=== PATIENT | male | born 1970 | race Caucasian/White ===

== ENCOUNTER 2018-12-21 10:39 | Inpatient (IN) | payer SELFPAY ==
--- NOTE | 2018-12-21 12:07 | PDOC ---
History of Present Illness <Nathalia Harris - Last Filed: 12/21/18 15:40> - General History Source: Patient Exam Limitations: No Limitations <Mayelin Aldana - Last Filed: 12/22/18 08:23> - General Chief Complaint: Pain Stated Complaint: ABD. PAIN Time Seen by Provider: 12/21/18 11:50 Past History <Nathalia Harris - Last Filed: 12/21/18 15:40> - Travel Traveled outside of the country in the last 30 days: No Close contact w/someone who was outside of country & ill: No - Past Medical History COPD: No CHF: No DVT: No - Immunization History Immunization Up to Date: Yes - Suicide/Smoking/Psychosocial Hx Smoking History: Never smoked Hx Alcohol Use: No Drug/Substance Use Hx: No <Mayelin Aldana - Last Filed: 12/22/18 08:23> - Past Medical History Allergies/Adverse Reactions: Allergies Allergy/AdvReac Type Severity Reaction Status Date / Time No Known Allergies Allergy Verified 12/21/18 10:50 Home Medications: Ambulatory Orders NK [No Known Home Medication] 12/21/18 Review of Systems - Review of Systems Able to Perform ROS?: Yes Comments:: 12/21/18 19:26 CONSTITUTIONAL: Absent: fever, chills, diaphoresis, generalized weakness, malaise, loss of appetite HEENT: Absent: rhinorrhea, nasal congestion, throat pain, throat swelling, difficulty swallowing, mouth swelling, ear pain, eye pain, visual Changes CARDIOVASCULAR: Absent: chest pain, loss of consciousness, palpitations, irregular heart rate, peripheral edema RESPIRATORY: Absent: cough, shortness of breath, dyspnea with exertion, orthopnea, wheezing, stridor, hemoptysis GASTROINTESTINAL: Present: abdominal pain Absent: abdominal distension, nausea, vomiting, diarrhea, constipation, melena, hematochezia GENITOURINARY: Present: dysuria, frequency. Absent: dysuria, frequency, urgency, hesitancy, hematuria, flank pain, genital pain MUSCULOSKELETAL: Absent: myalgia, arthralgia, joint swelling SKIN: Absent: rash, itching, pallor HEMATOLOGIC/IMMUNOLOGIC: Absent: easy bleeding, easy bruising, lymphadenopathy, frequent infections ENDOCRINE: Absent: unexplained weight gain, unexplained weight loss, heat intolerance, cold intolerance NEUROLOGIC: Absent: headache, focal weakness or paresthesias, dizziness, unsteady gait, seizure, mental status changes, bladder or bowel incontinence PSYCHIATRIC: Absent: anxiety, depression, suicidal or homicidal ideation, hallucinations. Is the patient limited Azeri proficient: No <Mayelin Aldana - Last Filed: 12/22/18 08:23> *Physical Exam - Vital Signs Last Vital Signs Temp Pulse Resp BP Pulse Ox 99.2 F 99 H 17 144/96 97 12/21/18 10:50 12/21/18 10:50 12/21/18 10:50 12/21/18 10:50 12/21/18 10:50 <Nathalia Harris - Last Filed: 12/21/18 15:40> - Vital Signs Last Vital Signs Temp Pulse Resp BP Pulse Ox 99.2 F 99 H 17 144/96 97 12/21/18 10:50 12/21/18 10:50 12/21/18 10:50 12/21/18 10:50 12/21/18 10:50 - Physical Exam Comments: 12/21/18 19:30 GENERAL: Well developed, well nourished. Awake and alert. No acute distress. HEENT: Normocephalic, atraumatic. PERRLA, EOMI. No conjunctival pallor. Sclera are non- icteric. Moist mucous membranes. Oropharynx is clear. NECK: Supple. Full ROM. No JVD. Carotid pulses 2+ and symmetric, without bruits. No thyromegaly. No lymphadenopathy. CARDIOVASCULAR: Regular rate and rhythm. No murmurs, rubs, or gallops. Distal pulses are 2+ and symmetric. PULMONARY: No evidence of respiratory distress. Lungs clear to auscultation bilaterally. No wheezing, rales or rhonchi. ABDOMINAL: TTP of the suprapubic area and RLQ. Soft. Non-distended. No rebound or guarding. No organomegaly. Normoactive bowel sounds. MUSCULOSKELETAL Normal range of motion at all joints. No bony deformities or tenderness. No CVA tenderness. EXTREMITIES: No cyanosis. No clubbing. No edema. No calf tenderness. SKIN: Warm and dry. Normal capillary refill. No rashes. No jaundice. NEUROLOGICAL: Alert, awake, appropriate. Cranial nerves 2-12 intact. No deficits to light touch and temperature in face, upper extremities and lower extremities. No motor deficits in the in face, upper extremities and lower extremities. Normoreflexic in the upper and lower extremities. Normal speech. Toes are down- going bilaterally. Gait is normal without ataxia. PSYCHIATRIC: Cooperative. Good eye contact. Appropriate mood and affect. <Mayelin Aldana - Last Filed: 12/22/18 08:23> ED Treatment Course - LABORATORY CBC & Chemistry Diagram: 12/21/18 12:52 12/21/18 12:52 - ADDITIONAL ORDERS Additional order review: Laboratory Results 12/21/18 12:35 Urine Color Dk yellow Urine Appearance Clear Urine pH 5.5 Ur Specific [place] 1.043 H Urine Protein 1+ H Urine Glucose (UA) 3+ H Urine Ketones 1+ H Urine Blood Negative Urine Nitrite Negative Urine Bilirubin 1+ H Urine Urobilinogen 1.0 Ur Leukocyte Esterase Trace Urine WBC (Auto) 1 Urine RBC (Auto) 1 Urine Casts (Auto) 3 U Epithel Cells (Auto) 0.5 Urine Bacteria (Auto) 0.3 <Nathalia Harris - Last Filed: 12/21/18 15:40> - LABORATORY CBC & Chemistry Diagram: 12/22/18 06:00 12/22/18 06:00 <Mayelin Aldana - Last Filed: 12/22/18 08:23> Medical Decision Making - Medical Decision Making 12/21/18 13:05 The patient was seen and evaluated in conjunction with midlevel provider under my direct supervision, ancillary studies were reviewed. I agree with the plan as outlined by ISABELLA Aldana. HPI, workup/dispo as outlined. VS reviewed, wnl. labs and UA unremarkable STD testing pending. due to pain, CT a/p with complicated diverticulitis with abscess empiric IV zosyn for complicated infection. 12/21/18 15:40 <Nathalia Harris - Last Filed: 12/21/18 15:40> - Medical Decision Making 12/21/18 13:33 The patient is a 47-year-old male other [place] healthy who presents to the ER today with suprapubic tenderness and dysuria. Patient states that his symptoms have been going on for approximately 3 days. He is been unable to eat due to the pain. Denies diarrhea or constipation. Denies fevers, chills, nausea, vomiting, chest pain, short of breath and difficulty breathing. Last oral intake was 12/20/18 at 21:00. A/P: Abdominal pain On exam patient suprapubic tenderness and right lower quadrant tenderness. Given complaining of dysuria basic labs and urine were ordered. Patient with a notable leukocytosis to 15 and a left shift. Urine is grossly negative for infection CTAP with IV contrast added CTAP shows an acute sigmoid diverticulitis with abscess formation pressing against the bladder potentially IV Zosysilvana Mcclure paged for admission Dr. Acevedo consult for surgery Case discussed with Dr. Mcclure; requesting GI consult. Pt to go to med/surg <Mayelin Aldana - Last Filed: 12/22/18 08:23> *DC/Admit/Observation/Transfer <Nathalia Harris - Last Filed: 12/21/18 15:40> - Discharge Dispostion Decision to Admit order: Yes <Mayelin Aldana - Last Filed: 12/22/18 08:23> Diagnosis at time of Disposition: Abscess of sigmoid colon due to diverticulitis - Discharge Dispostion Condition at time of disposition: Stable
[2018-12-21 12:45] LABS: EPI CELLS 0.5 /HPF (0-5/HPF); PH,URINE 5.5 (5.0-8.0); URINE APPEARANCE CLEAR; URINE BACTERIA 0.3 /hpf (NEGATIVE); URINE BILIRUBIN 1+ (NEGATIVE); URINE CASTS 3 /lpf (0-8); URINE COLOR DK YELLOW; URINE GLUCOSE (UA) 3+ (NEGATIVE); URINE KETONE 1+ (NEGATIVE); URINE LEUK ESTERASE TRACE (NEGATIVE); URINE NITRITE NEGATIVE (NEGATIVE); URINE PROTEIN 1+ (NEGATIVE); URINE RBC 1 /hpf (0-4); URINE WBC 1 /hpf (0-5)
[2018-12-21 13:03] LABS: BASO % 0.9 % (0-2.0); EOS % 0.1 % (0-4.5); HEMATOCRIT 45.4 % (35.4-49); HEMOGLOBIN 15.6 GM/dL (11.7-16.9); LYMPH % 9.7 % (8-40); MCH 31.7 pg (25.7-33.7); MCHC 34.4 g/dl (32.0-35.9); MEAN CELL VOLUME 92.2 fl (80-96); MEAN PLT VOLUME 9.6 fl (7.5-11.1); NEUT % 78.3 % (42.8-82.8); PLATELET COUNT 192 K/MM3 (134-434); RBC 4.92 M/mm3 (4.00-5.60); RDW 13.4 % (11.9-15.9); WHITE BLOOD COUNT 15.9 K/mm3 (4.0-10.0)
[2018-12-21 13:35] LABS: ALBUMIN 3.9 g/dl (3.4-5.0); ALK PHOS 79 U/L (45-117); ANION GAP 9 MMOL/L (8-16); BILIRUBIN,TOTAL 1.1 mg/dL (0.2-1); BLOOD UREA NITROGEN 16 mg/dL (7-18); CALCIUM 8.9 mg/dL (8.5-10.1); CHLORIDE 100 mmol/L (98-107); CO2 27 mmol/L (21-32); CREATININE 0.8 mg/dL (0.55-1.3); GLUCOSE,RANDOM 189 mg/dL (74-106); POTASSIUM 3.6 mmol/L (3.5-5.1); SGOT/AST 32 U/L (15-37); SGPT/ALT 76 U/L (13-61); SODIUM 136 mmol/L (136-145); TOT PROT 7.8 g/dl (6.4-8.2)
[2018-12-21] MEDS ORDERED: SODIUM CHLORIDE 1,000 ML IV STA (15:34)
[2018-12-21] MEDS: PIPERACILLIN/TAZOB 4.5 GM 4.5 GM in DEXTROSE 5%-WATER 100 ML IVPB ONE (15:49)
[2018-12-21] MEDS ORDERED: PIPERACILLIN/TAZOB 4.5 GM 4.5 GM/100 ML BAG IVPB ONE (15:50)
--- NOTE | 2018-12-21 16:53 | HP ---
Admitting History and Physical - Primary Care Physician PCP: Jeremi Mcclure - Admission Chief Complaint: abdominal pain History of Present Illness: 47-year-old male other [place] healthy who presents to the ER today with suprapubic tenderness and dysuria. Patient states that his symptoms have been going on for approximately 3 days. He is been unable to eat due to the pain. Denies diarrhea or constipation. Denies fevers, chills, nausea, vomiting, chest pain, short of breath and difficulty breathing. Last oral intake was 12/20/18 at 21:00. - Smoking History Smoking history: Never smoked - Alcohol/Substance Use Hx Alcohol Use: No Home Medications - Allergies Allergies/Adverse Reactions: Allergies Allergy/AdvReac Type Severity Reaction Status Date / Time No Known Allergies Allergy Verified 12/21/18 10:50 - Home Medications Home Medications: Ambulatory Orders NK [No Known Home Medication] 12/21/18 Physical Examination Vital Signs: Vital Signs Temperature 98.6 F 12/21/18 16:04 Pulse Rate 82 12/21/18 16:04 Respiratory Rate 16 12/21/18 16:04 Blood Pressure 122/84 12/21/18 16:04 O2 Sat by Pulse Oximetry (%) 98 12/21/18 16:04 Constitutional: Yes: No Distress HENT: Yes: Atraumatic Neck: Yes: Supple Cardiovascular: Yes: Regular Rate and Rhythm Respiratory: Yes: CTA Bilaterally Gastrointestinal: Yes: Normal Bowel Sounds, Tenderness (suprapubic) Extremities: Yes: WNL Neurological: Yes: Alert, Oriented Labs: CBC, BMP 12/21/18 12:52 12/21/18 12:52 Problem List - Problems (1) Abscess of sigmoid colon due to diverticulitis Assessment/Plan: npo ivf iv abx Code(s): K57.20 - DVTRCLI OF LG INT W PERFORATION AND ABSCESS W/O BLEEDING (2) Suprapubic pain Code(s): R10.2 - PELVIC AND PERINEAL PAIN Assessment/Plan Laboratory Tests 12/21/18 12/21/18 12/21/18 12:35 12:52 12:52 WBC 15.9 H RBC 4.92 Hgb 15.6 Hct 45.4 MCV 92.2 MCH 31.7 MCHC 34.4 RDW 13.4 Plt Count 192 MPV 9.6 Absolute Neuts (auto) 12.4 H Neutrophils % 78.3 Lymphocytes % 9.7 Monocytes % 11.0 H Eosinophils % 0.1 Basophils % 0.9 Nucleated RBC % 0 Sodium 136 Potassium 3.6 Chloride 100 Carbon Dioxide 27 Anion Gap 9 BUN 16 Creatinine 0.8 Creat Clearance w eGFR 103.62 Random Glucose 189 H Calcium 8.9 Total Bilirubin 1.1 H AST 32 ALT 76 H Alkaline Phosphatase 79 Total Protein 7.8 Albumin 3.9 Urine Color Dk yellow Urine Appearance Clear Urine pH 5.5 Ur Specific [place] 1.043 H Urine Protein 1+ H Urine Glucose (UA) 3+ H Urine Ketones 1+ H Urine Blood Negative Urine Nitrite Negative Urine Bilirubin 1+ H Urine Urobilinogen 1.0 Ur Leukocyte Esterase Trace Urine WBC (Auto) 1 Urine RBC (Auto) 1 Urine Casts (Auto) 3 U Epithel Cells (Auto) 0.5 Urine Bacteria (Auto) 0.3 Active Medications Generic Name Dose Route Start Last Admin Trade Name Freq PRN Reason Stop Dose Admin Acetaminophen 1,000 mg 12/21/18 17:10 Ofirmev Injection - IVPB Q6H PRN Pain Level 4 - 10 Heparin Sodium (Porcine) 5,000 unit 12/21/18 22:00 12/22/18 10:09 Heparin - SQ 5,000 unit BID ROGER Administration Potassium Chloride/Dextrose/Sod Cl 20 meq in 1,000 mls @ 125 mls/hr 12/21/18 17:15 12/22/18 02:12 D5-1/2ns+20 Meq Kcl - IV 125 mls/hr ASDIR ROGER Administration Piperacillin Sod/Tazobactam 50 mls @ 100 mls/hr 12/21/18 23:15 12/22/18 10:09 Sod 3.375 gm/ Dextrose IVPB 100 mls/hr Q8H-IV ROGER Administration Protocol Morphine Sulfate 2 mg 12/21/18 17:11 Morphine Sulfate IVPUSH Q4H PRN Pain Level 7 - 10 BREAKTHROUGH
[2018-12-21] MEDS ORDERED: morphine SULFATE 4 MG/ML VIAL IVPUSH PRN ×2 (16:55→17:11)
[2018-12-21] MEDS ORDERED: SODIUM CHLORIDE 1,000 ML IV SCH (17:00)
[2018-12-21] MEDS ORDERED: ACETAMINOPHEN 1000 MG/100 ML VIAL (NON FORMULARY) IVPB PRN (17:10)
[2018-12-21] MEDS: D5-1/2NS+20 MEQ KCL - 20 MEQ/1,000 ML INFUS.BAG IV SCH (17:15)
--- NOTE | 2018-12-21 17:17 | CONSULT ---
Consult Consult Specialty:: General Surgery Referred by:: Madi Aldana Reason for Consultation:: dysuria, diverticulitis with small abscess - History of Present Illness Chief Complaint: dysuria x 3 days History of Present Illness: 47yo [place] M with no known PMH/PSH, hasn't seen doctor in many years, presents with suprapubic pain and dysuria since Friday. He denies fever, vomiting, diarrhea or constipation, with normal last BM this morning (soft, formed), mild cool feeling yesterday and today, mild nausea just in ER, and brief headache yesterday. May have had something similar years ago (but less) in [place], drank corn silk tea and it went away. No colonoscopy yet. He last ate meat/steak tacos with avocado last night, had 2-3 beers yesterday, no PO today. In ER, he is afebrile, with wbc 15.9, Hb 15.6; UA very concentrated with 3+ glucose; bili 1.1 with normal LFTs. Workup included CT abd/pelvis which shows sigmoid diverticulitis with small pocket of air/fluid (abscess) next to colon and against bladder. No distant free air or obstruction. He has had first dose Zosyn, IV fluids and morphine. Surgery was asked to evaluate. Seen and examined in ER holding, where he states his pain has been much better since the medication - very little now, but still a bit tender. Little nausea, was spitting a bit into a cup, no vomiting. He notes that he has several family members with sugar problems but does not know about himself, as he sees no regular doctor. No home meds, did not take anything at home these last few days for pain. Drinks 2-3 beers most days, denies shakes, blackouts or problems if he does not drink. - History Source History Provided By: Patient Limitations to Obtaining History: Language Barrier (Tunisian - pt ok with Panamanian - Katia Bradley assisted with some explanations from me) - Past Medical History Cardio/Vascular: No: HTN Pulmonary: No: Asthma Dermatology: Yes: Other (laceration to left arm - stitches years ago) Additional Medical History: denies - none known, but hasn't seen a doctor in years - Past Surgical History Past Surgical History: Yes: None - Alcohol/Substance Use Hx Alcohol Use: Yes (2-3 beers daily) Number of Drinks Daily: 2 History of Substance Use: reports: None - Smoking History Smoking history: Never smoked Have you smoked in the past 12 months: No - Social History ADL: Independent Occupation: cuts down trees Place of : Other ([place]) Came to [place]year[place] 1985 Home Medications - Allergies Allergies/Adverse Reactions: Allergies Allergy/AdvReac Type Severity Reaction Status Date / Time No Known Allergies Allergy Verified 12/21/18 10:50 - Home Medications Home Medications: Ambulatory Orders NK [No Known Home Medication] 12/21/18 Family Disease History - Family Disease History Family Disease History: Diabetes: Father, Brother, CA: Mother (uterine) Review of Systems - Review of Systems Constitutional: reports: Chills (yesterday and today). denies: Fever, Loss of Appetite Eyes: denies: Blurred Vision, Recent Change in Vision HENT: denies: Difficult Swallowing, Nasal Congestion, Throat Pain Neck: denies: Swollen Glands, Tenderness Cardiovascular: denies: Chest Pain, Palpitations Respiratory: denies: Cough, SOB Gastrointestinal: reports: Abdominal Pain (with hpi), Nausea (little today). denies: Constipation, Diarrhea, Vomiting Genitourinary: reports: Dysuria (pain with urination). denies: Burning Musculoskeletal: reports: Back Pain (occasional). denies: Joint Pain, Muscle Pain Integumentary: denies: Change in Color, Rash Neurological: reports: Headache (little yesterday). denies: Dizziness Psychiatric: denies: Anxiety, Depression Physical Exam Vital Signs: Vital Signs Temperature 98.6 F 12/21/18 16:04 Pulse Rate 82 12/21/18 16:04 Respiratory Rate 16 12/21/18 16:04 Blood Pressure 122/84 12/21/18 16:04 O2 Sat by Pulse Oximetry (%) 98 12/21/18 16:04 Constitutional: Yes: Well Nourished, No Distress, Calm Eyes: Yes: Conjunctiva Clear, EOM Intact HENT: Yes: Atraumatic, Normocephalic Neck: Yes: Supple, Trachea Midline Cardiovascular: Yes: Regular Rate and Rhythm. No: Murmur Respiratory: Yes: Regular, CTA Bilaterally Gastrointestinal: Yes: Normal Bowel Sounds, Soft, Tenderness (suprapubic without rebound or guarding, less to either side but present). No: Distention, Tenderness, Epigastrium ...Rectal Exam: Yes: Deferred Renal/: No: CVA Tenderness - Left, CVA Tenderness - Right Musculoskeletal: No: Joint Stiffness, Joint Swelling Extremities: No: Cool, Cyanosis Edema: No Peripheral Pulses WNL: Yes Integumentary: No: Jaundice, Rash Neurological: Yes: Alert, Oriented Psychiatric: Yes: Alert, Oriented Labs: CBC, BMP 12/21/18 12:52 12/21/18 12:52 CMP Sodium 136 mmol/L (136-145) 12/21/18 12:52 Potassium 3.6 mmol/L (3.5-5.1) 12/21/18 12:52 Chloride 100 mmol/L (98-107) 12/21/18 12:52 Carbon Dioxide 27 mmol/L (21-32) 12/21/18 12:52 Anion Gap 9 MMOL/L (8-16) 12/21/18 12:52 BUN 16 mg/dL (7-18) 12/21/18 12:52 Creatinine 0.8 mg/dL (0.55-1.3) 12/21/18 12:52 Creat Clearance w eGFR 103.62 (>60) 12/21/18 12:52 Random Glucose 189 mg/dL (74-106) H 12/21/18 12:52 Calcium 8.9 mg/dL (8.5-10.1) 12/21/18 12:52 Total Bilirubin 1.1 mg/dL (0.2-1) H 12/21/18 12:52 AST 32 U/L (15-37) 12/21/18 12:52 ALT 76 U/L (13-61) H 12/21/18 12:52 Alkaline Phosphatase 79 U/L (45-117) 12/21/18 12:52 Total Protein 7.8 g/dl (6.4-8.2) 12/21/18 12:52 Albumin 3.9 g/dl (3.4-5.0) 12/21/18 12:52 Urine Test Results Urine Color Dk yellow 12/21/18 12:35 Urine Appearance Clear 12/21/18 12:35 Urine pH 5.5 (5.0-8.0) 12/21/18 12:35 Ur Specific [place] 1.043 (1.010-1.035) H 12/21/18 12:35 Urine Protein 1+ (NEGATIVE) H 12/21/18 12:35 Urine Glucose (UA) 3+ (NEGATIVE) H 12/21/18 12:35 Urine Ketones 1+ (NEGATIVE) H 12/21/18 12:35 Urine Blood Negative (NEGATIVE) 12/21/18 12:35 Urine Nitrite Negative (NEGATIVE) 12/21/18 12:35 Urine Bilirubin 1+ (NEGATIVE) H 12/21/18 12:35 Ur Leukocyte Esterase Trace (NEGATIVE) 12/21/18 12:35 Imaging - Results Cat Scan: Report Reviewed, Image Reviewed (images reviewed - sigmoid diverticulitis with small air/fluid pocket just against bladder - no distant free air, no obstruction, no po contrast given) Problem List - Problems (1) Diverticulitis of large intestine with abscess without bleeding Assessment/Plan: admit to medicine keep NPO/IVF - no po meds/meals yet generous IV fluid rehydration pain meds prn - nonnarcotics first line IV antibiotics - per ID, Zosyn started trend labs GI/DVT prophylaxis discussed with Dr. Henry of IR - actual pocket of fluid is only about 2cm diameter, too small to aspirate yet will follow on IV antibiotics 1-2 days, then reimage (CT w/po + IV contrast) pending clinical course to see if abscess gets smaller, or large enough for aspiration or drain placement discussed with patient that acute/sudden change or increase in pain, or abdominal distention could signal free perforation and need for urgent/emergent surgery if field were contaminated with stool, OR could result in need for temporary colostomy if abscess does not decrease/resolve with abx, and is not drainable by IR, there is also possibility of discussing need for laparoscopic washout w/drain placement, pending clinical course pt will need colonoscopy 6-8 weeks after resolution of episode GI also consulted discussed with Dr. Mcclure Code(s): K57.20 - DVTRCLI OF LG INT W PERFORATION AND ABSCESS W/O BLEEDING (2) Suprapubic pain Code(s): R10.2 - PELVIC AND PERINEAL PAIN (3) Dysuria Assessment/Plan: secondary to process/abscess adjacent to bladder Code(s): R30.0 - DYSURIA (4) Dehydration Assessment/Plan: generous IV fluids Code(s): E86.0 - DEHYDRATION (5) Hyperglycemia Assessment/Plan: pt with diabetes in family history, urine with 3+ glucose check A1C Code(s): R73.9 - HYPERGLYCEMIA, UNSPECIFIED
[2018-12-21 19:01] LABS: INR 1.27 (0.83-1.09)
[2018-12-21 19:04] LABS: ACTIVATED PTT 36.8 SECONDS (25.2-36.5)
[2018-12-21 20:28] VITALS: BMI 32.4
[2018-12-21] MEDS: HEPARIN NA (PORCINE) 5,000 UNITS/ML 1ML VIAL SQ SCH (21:49)
[2018-12-21] MEDS ORDERED: PIPERACILLIN/TAZOBACTAM 3.375 GM VIAL IVPB ONE (22:41)
[2018-12-21] MEDS ORDERED: DEXTROSE 5%-WATER - 50 ML IVPB ONE (22:42)
[2018-12-21] MEDS: PIPERACILLIN/TAZOB 3.375 GM 3.375 GM in DEXTROSE 5%-WATER - 50 ML IVPB SCH (22:48)
[2018-12-22] MEDS ORDERED: PIPERACILLIN/TAZOBACTAM 3.375 GM VIAL IVPB ONE ×3 (01:57→18:28)
[2018-12-22] MEDS ORDERED: DEXTROSE 5%-WATER - 50 ML IVPB ONE ×3 (01:57→18:28)
[2018-12-22] MEDS: D5-1/2NS+20 MEQ KCL - 20 MEQ/1,000 ML INFUS.BAG IV SCH ×2 (02:12→22:18)
[2018-12-22] MEDS: PIPERACILLIN/TAZOB 3.375 GM 3.375 GM in DEXTROSE 5%-WATER - 50 ML IVPB SCH ×3 (02:12→18:31)
[2018-12-22 06:46] LABS: BASO % 0.5 % (0-2.0); EOS % 2.1 % (0-4.5); HEMATOCRIT 41.2 % (35.4-49); HEMOGLOBIN 14.1 GM/dL (11.7-16.9); LYMPH % 23.5 % (8-40); MCH 31.7 pg (25.7-33.7); MCHC 34.3 g/dl (32.0-35.9); MEAN CELL VOLUME 92.6 fl (80-96); MEAN PLT VOLUME 9.3 fl (7.5-11.1); MONO % 14.2 % (3.8-10.2); NEUT % 59.7 % (42.8-82.8); PLATELET COUNT 184 K/MM3 (134-434); RBC 4.45 M/mm3 (4.00-5.60); WHITE BLOOD COUNT 7.5 K/mm3 (4.0-10.0)
[2018-12-22 07:35] LABS: ALK PHOS 53 U/L (45-117); ANION GAP 7 MMOL/L (8-16); BLOOD UREA NITROGEN 11 mg/dL (7-18); CALCIUM 8.2 mg/dL (8.5-10.1); CHLORIDE 105 mmol/L (98-107); CO2 27 mmol/L (21-32); CREATININE 0.7 mg/dL (0.55-1.3); GLUCOSE,RANDOM 185 mg/dL (74-106); MAGNESIUM 2.4 mg/dL (1.8-2.4); POTASSIUM 3.8 mmol/L (3.5-5.1); SGOT/AST 29 U/L (15-37); SGPT/ALT 56 U/L (13-61); SODIUM 139 mmol/L (136-145); TOT PROT 6.2 g/dl (6.4-8.2)
--- NOTE | 2018-12-22 09:14 | CON.GI ---
Consult Consult Specialty:: GI CONSULT DICTATED - Past Medical History Cardio/Vascular: No: HTN Pulmonary: No: Asthma Dermatology: Yes: Other (laceration to left arm - stitches years ago) Additional Medical History: denies - none known, but hasn't seen a doctor in years - Past Surgical History Past Surgical History: Yes: None - Alcohol/Substance Use Hx Alcohol Use: No Number of Drinks Daily: 2 History of Substance Use: reports: None - Smoking History Smoking history: Never smoked Have you smoked in the past 12 months: No - Social History ADL: Independent Occupation: [employer] Home Medications - Allergies Allergies/Adverse Reactions: Allergies Allergy/AdvReac Type Severity Reaction Status Date / Time No Known Allergies Allergy Verified 12/21/18 10:50 - Home Medications Home Medications: Ambulatory Orders NK [No Known Home Medication] 12/21/18 Family Disease History - Family Disease History Family Disease History: Diabetes: Father, Brother, CA: Mother (uterine) Physical Exam-GI Vital Signs: Vital Signs Temperature 98.7 F 12/22/18 05:44 Pulse Rate 71 12/22/18 05:44 Respiratory Rate 20 12/22/18 05:44 Blood Pressure 107/66 12/22/18 05:44 O2 Sat by Pulse Oximetry (%) 98 12/21/18 20:36 Labs: CBC, BMP 12/22/18 06:00 12/22/18 06:00 INR, PTT INR 1.27 (0.83-1.09) H 12/21/18 18:00 Problem List - Problems (1) Diverticulitis of large intestine with abscess without bleeding Code(s): K57.20 - DVTRCLI OF LG INT W PERFORATION AND ABSCESS W/O BLEEDING
[2018-12-22] MEDS: HEPARIN NA (PORCINE) 5,000 UNITS/ML 1ML VIAL SQ SCH ×2 (10:09→21:37)
--- NOTE | 2018-12-22 11:41 | PN ---
Progress Note, Physician History of Present Illness: Patient with sigmoid diverticulitis with very small abscess adjacent to bladder. He is NPO/IVF on Zosyn per ID. Seen and examined in bed. Reports his pain is better, only a little with urination. No BM since yesterday morning before ER. Ambulating in room, voiding. - Current Medication List Current Medications: Active Medications Acetaminophen (Ofirmev Injection -) 1,000 mg IVPB Q6H PRN PRN Reason: Pain Level 4 - 10 Heparin Sodium (Porcine) (Heparin -) 5,000 unit SQ BID ROGER Last Admin: 12/22/18 10:09 Dose: 5,000 unit Potassium Chloride/Dextrose/Sod Cl (D5-1/2ns+20 Meq Kcl -) 20 meq in 1,000 mls @ 125 mls/hr IV ASDIR ROGER Last Admin: 12/22/18 02:12 Dose: 125 mls/hr Piperacillin Sod/Tazobactam (Sod 3.375 gm/ Dextrose) 50 mls @ 100 mls/hr IVPB Q8H-IV ROGER; Protocol Last Admin: 12/22/18 10:09 Dose: 100 mls/hr Morphine Sulfate (Morphine Sulfate) 2 mg IVPUSH Q4H PRN PRN Reason: Pain Level 7 - 10 BREAKTHROUGH - Objective Vital Signs: Vital Signs Temperature 98.5 F 12/22/18 09:00 Pulse Rate 78 12/22/18 09:00 Respiratory Rate 20 12/22/18 09:00 Blood Pressure 109/75 12/22/18 09:00 O2 Sat by Pulse Oximetry (%) 98 12/21/18 20:36 Constitutional: Yes: Well Nourished, No Distress, Calm Eyes: Yes: Conjunctiva Clear, EOM Intact HENT: Yes: Atraumatic, Normocephalic Gastrointestinal: Yes: Soft, Tenderness (suprapubic more than to either side, little less than yesterday, no alejandro/guard). No: Distention Extremities: No: Cool, Cyanosis Integumentary: No: Jaundice, Rash Neurological: Yes: Alert, Oriented Labs: CBC, BMP 12/22/18 06:00 12/22/18 06:00 INR, PTT INR 1.27 (0.83-1.09) H 12/21/18 18:00 CMP Sodium 139 mmol/L (136-145) 12/22/18 06:00 Potassium 3.8 mmol/L (3.5-5.1) 12/22/18 06:00 Chloride 105 mmol/L (98-107) 12/22/18 06:00 Carbon Dioxide 27 mmol/L (21-32) 12/22/18 06:00 Anion Gap 7 MMOL/L (8-16) L 12/22/18 06:00 BUN 11 mg/dL (7-18) 12/22/18 06:00 Creatinine 0.7 mg/dL (0.55-1.3) 12/22/18 06:00 Creat Clearance w eGFR 120.88 (>60) 12/22/18 06:00 Random Glucose 185 mg/dL (74-106) H 12/22/18 06:00 Hemoglobin A1c % 7.4 % (4.2-6.3) H 12/22/18 06:00 Calcium 8.2 mg/dL (8.5-10.1) L 12/22/18 06:00 Magnesium 2.4 mg/dL (1.8-2.4) 12/22/18 06:00 Total Bilirubin 1.0 mg/dL (0.2-1) 12/22/18 06:00 AST 29 U/L (15-37) 12/22/18 06:00 ALT 56 U/L (13-61) 12/22/18 06:00 Alkaline Phosphatase 53 U/L (45-117) 12/22/18 06:00 Total Protein 6.2 g/dl (6.4-8.2) L 12/22/18 06:00 Albumin 3.0 g/dl (3.4-5.0) L 12/22/18 06:00 wbc down to normal better hydrated bili down to 1 A1C elevated consistent with diabetes Problem List - Problems (1) Diverticulitis of large intestine with abscess without bleeding Assessment/Plan: admitted to medicine hot kettle tender, little less but also with mild pain; keep NPO/IVF - no po meds/ meals yet IV antibiotics per ID, Zosyn pain meds prn - nonnarcotics first line trend labs GI/DVT prophylaxis discussed with IR yesterday - actual pocket of fluid is only about 2cm diameter , too small to aspirate yet will follow on IV antibiotics 1-2 days, then reimage (CT w/PO + IV contrast) pending clinical course to see if abscess gets smaller, or large enough for aspiration or drain placement presuming still with pain/tenderness in am, will plan for CT tomorrow morning discussed with patient that acute/sudden change or increase in pain, or abdominal distention could signal free perforation and need for urgent/emergent surgery if field were contaminated with stool, OR could result in need for temporary colostomy if abscess does not decrease/resolve with abx, and is not drainable by IR, there is also possibility of discussing need for laparoscopic washout w/drain placement, pending clinical course pt will need colonoscopy 6-8 weeks after resolution of episode GI consulted Code(s): K57.20 - DVTRCLI OF LG INT W PERFORATION AND ABSCESS W/O BLEEDING (2) Suprapubic pain Assessment/Plan: improved a bit, hot kettle tender Code(s): R10.2 - PELVIC AND PERINEAL PAIN (3) Dysuria Assessment/Plan: secondary to process/abscess adjacent to bladder improved but still present Code(s): R30.0 - DYSURIA (4) Dehydration Assessment/Plan: better hydrated, continue IVF Code(s): E86.0 - DEHYDRATION (5) Hyperglycemia Assessment/Plan: A1C elevated likely new diagnosis of DM2 defer to medicine for management, teaching Code(s): R73.9 - HYPERGLYCEMIA, UNSPECIFIED
--- NOTE | 2018-12-22 12:39 | PN ---
Progress Note, Physician History of Present Illness: doing well - Current Medication List Current Medications: Active Medications Acetaminophen (Ofirmev Injection -) 1,000 mg IVPB Q6H PRN PRN Reason: Pain Level 4 - 10 Heparin Sodium (Porcine) (Heparin -) 5,000 unit SQ BID ROGER Last Admin: 12/22/18 10:09 Dose: 5,000 unit Potassium Chloride/Dextrose/Sod Cl (D5-1/2ns+20 Meq Kcl -) 20 meq in 1,000 mls @ 125 mls/hr IV ASDIR ROGER Last Admin: 12/22/18 02:12 Dose: 125 mls/hr Piperacillin Sod/Tazobactam (Sod 3.375 gm/ Dextrose) 50 mls @ 100 mls/hr IVPB Q8H-IV ROGER; Protocol Last Admin: 12/22/18 10:09 Dose: 100 mls/hr Morphine Sulfate (Morphine Sulfate) 2 mg IVPUSH Q4H PRN PRN Reason: Pain Level 7 - 10 BREAKTHROUGH - Objective Vital Signs: Vital Signs Temperature 98.5 F 12/22/18 09:00 Pulse Rate 78 12/22/18 09:00 Respiratory Rate 20 12/22/18 09:00 Blood Pressure 109/75 12/22/18 09:00 O2 Sat by Pulse Oximetry (%) 98 12/21/18 20:36 Constitutional: Yes: No Distress HENT: Yes: Atraumatic Neck: Yes: Supple Cardiovascular: Yes: Regular Rate and Rhythm Respiratory: Yes: CTA Bilaterally Gastrointestinal: Yes: Normal Bowel Sounds, Tenderness (MILD SUPRAPUBIC) Extremities: Yes: WNL Edema: No Peripheral Pulses WNL: Yes Neurological: Yes: Alert, Oriented Labs: CBC, BMP 12/22/18 06:00 12/22/18 06:00 INR, PTT INR 1.27 (0.83-1.09) H 12/21/18 18:00 Problem List - Problems (1) Abscess of sigmoid colon due to diverticulitis Assessment/Plan: npo ivf iv abx Code(s): K57.20 - DVTRCLI OF LG INT W PERFORATION AND ABSCESS W/O BLEEDING (2) Suprapubic pain Code(s): R10.2 - PELVIC AND PERINEAL PAIN
--- NOTE | 2018-12-22 13:06 | CON.ID ---
Consult - Past Medical History Cardio/Vascular: No: HTN Pulmonary: No: Asthma Dermatology: Yes: Other (laceration to left arm - stitches years ago) Additional Medical History: denies - none known, but hasn't seen a doctor in years - Past Surgical History Past Surgical History: Yes: None - Alcohol/Substance Use Hx Alcohol Use: No Number of Drinks Daily: 2 History of Substance Use: reports: None - Smoking History Smoking history: Never smoked Have you smoked in the past 12 months: No - Social History ADL: Independent Occupation: cuts [employer] Home Medications - Allergies Allergies/Adverse Reactions: Allergies Allergy/AdvReac Type Severity Reaction Status Date / Time No Known Allergies Allergy Verified 12/21/18 10:50 - Home Medications Home Medications: Ambulatory Orders NK [No Known Home Medication] 12/21/18 Family Disease History - Family Disease History Family Disease History: Diabetes: Father, Brother, CA: Mother (uterine) Physical Exam Vital Signs: Vital Signs Temperature 98.5 F 12/22/18 09:00 Pulse Rate 78 12/22/18 09:00 Respiratory Rate 20 12/22/18 09:00 Blood Pressure 109/75 12/22/18 09:00 O2 Sat by Pulse Oximetry (%) 98 12/21/18 20:36 Labs: CBC, BMP 12/22/18 06:00 12/22/18 06:00
--- NOTE | 2018-12-22 16:18 | CONS ---
DATE OF CONSULTATION: DATE OF DICTATION: 12/22/2018 GASTROENTEROLOGY CONSULTATION Patient is a 47-year-old man with no known past medical or surgical history who presented to the hospital with suprapubic abdominal pain which radiates to the right and left side of his abdomen. He also admits to having nausea and some headache. He denies a history of blood in the stool, constipation, diarrhea. He has never had an endoscopic evaluation in the past, and he has never had previous episodes of diverticulitis. PAST MEDICAL AND SURGICAL HISTORY: As listed in the HPI. ALLERGIES: No known drug allergies. SOCIAL HISTORY: Drinks beer. Does not smoke cigarettes. FAMILY HISTORY: No history of GI or gynecological malignancy. HOME MEDICATIONS: None. REVIEW OF SYSTEMS: As per the HPI. PHYSICAL EXAMINATION: Vital Signs: Temperature 98, pulse 78, respiratory rate 12, blood pressure 109/75, pulse oximetry 98% on room air. General: No acute distress. HEENT: Anicteric sclerae. Cardiovascular: S1, S2. Regular rate and rhythm. Lungs: Bilaterally clear to auscultation. Abdomen: Soft and tender only in the suprapubic region without any rebound or guarding. Extremities: No edema. LABORATORY: White blood cell count on admission is 15.9, currently 17.5, hemoglobin 14/hematocrit 41, MCV 92, platelet count 184. INR 1.27. Sodium 139, potassium 3.8. BUN 11/creatinine 0.7. Hemoglobin A1c 7.4. Glucose 185. AST 29, ALT 56, alkaline phosphatase 53. Urine revealed 1+ ketones and glucose 3+, 1+ protein, no leukocyte esterase. Serologies for gonorrhea and chlamydia are pending at this time. He had a CT scan of the abdomen and pelvis with contrast which revealed acute sigmoid diverticulitis with diverticular abscess and possible bladder involvement. Fluid collection posterior to the sigmoid measured 4 x 2 x 2 cm and is abutting the dome of the urinary bladder. No evidence of acute appendicitis. There is also diffuse fatty infiltrate of the liver. IMPRESSION: Acute complicated diverticulitis with abscess formation. RECOMMENDATIONS: Clear liquid diet. Continue antibiotics. Would recommend Zosyn IV q.8 hours. Surgery followup. Also, follow up with IR regarding potential drainage of the abscess collection if it does not improve with conservative management and antibiotics. He will need a diagnostic colonoscopy in 8 weeks. Will follow. DO YAYA ADAMES/[id number]
[2018-12-23] MEDS ORDERED: PIPERACILLIN/TAZOBACTAM 3.375 GM VIAL IVPB ONE ×2 (01:12→09:23)
[2018-12-23] MEDS ORDERED: DEXTROSE 5%-WATER - 50 ML IVPB ONE ×2 (01:12→09:23)
[2018-12-23] MEDS: PIPERACILLIN/TAZOB 3.375 GM 3.375 GM in DEXTROSE 5%-WATER - 50 ML IVPB SCH ×3 (01:16→18:00)
[2018-12-23 07:20] LABS: BASO % 0.8 % (0-2.0); EOS % 4.2 % (0-4.5); HEMOGLOBIN 14.2 GM/dL (11.7-16.9); LYMPH % 32.2 % (8-40); MCH 31.9 pg (25.7-33.7); MCHC 34.6 g/dl (32.0-35.9); MEAN PLT VOLUME 9.2 fl (7.5-11.1); MONO % 13.3 % (3.8-10.2); NEUT % 49.5 % (42.8-82.8); PLATELET COUNT 212 K/MM3 (134-434); RBC 4.46 M/mm3 (4.00-5.60); RDW 12.8 % (11.9-15.9); WHITE BLOOD COUNT 5.8 K/mm3 (4.0-10.0)
[2018-12-23 07:34] LABS: ANION GAP 7 MMOL/L (8-16); BLOOD UREA NITROGEN 7 mg/dL (7-18); CALCIUM 8.4 mg/dL (8.5-10.1); CHLORIDE 105 mmol/L (98-107); CO2 27 mmol/L (21-32); CREATININE 0.7 mg/dL (0.55-1.3); GLUCOSE,RANDOM 150 mg/dL (74-106); POTASSIUM 3.8 mmol/L (3.5-5.1); SODIUM 139 mmol/L (136-145)
[2018-12-23] MEDS: PIPERACILLIN/TAZOB 4.5 GM 4.5 GM in DEXTROSE 5%-WATER 100 ML IVPB ONE (09:29)
[2018-12-23] MEDS: HEPARIN NA (PORCINE) 5,000 UNITS/ML 1ML VIAL SQ SCH ×2 (09:30→21:13)
--- NOTE | 2018-12-23 10:16 | PN ---
Progress Note, Physician History of Present Illness: stable patient continues to have pain but better - Current Medication List Current Medications: Active Medications Acetaminophen (Ofirmev Injection -) 1,000 mg IVPB Q6H PRN PRN Reason: Pain Level 4 - 10 Heparin Sodium (Porcine) (Heparin -) 5,000 unit SQ BID ROGER Last Admin: 12/23/18 09:30 Dose: 5,000 unit Potassium Chloride/Dextrose/Sod Cl (D5-1/2ns+20 Meq Kcl -) 20 meq in 1,000 mls @ 125 mls/hr IV ASDIR ROGER Last Admin: 12/22/18 22:18 Dose: 125 mls/hr Piperacillin Sod/Tazobactam (Sod 3.375 gm/ Dextrose) 50 mls @ 100 mls/hr IVPB Q8H-IV ROGER; Protocol Last Admin: 12/23/18 09:29 Dose: 100 mls/hr Morphine Sulfate (Morphine Sulfate) 2 mg IVPUSH Q4H PRN PRN Reason: Pain Level 7 - 10 BREAKTHROUGH - Objective Vital Signs: Vital Signs Temperature 98.9 F 12/23/18 05:32 Pulse Rate 67 12/23/18 05:32 Respiratory Rate 21 H 12/23/18 05:32 Blood Pressure 105/65 12/23/18 05:32 O2 Sat by Pulse Oximetry (%) 99 12/22/18 21:00 Constitutional: Yes: Calm, Mild Distress Cardiovascular: Yes: Regular Rate and Rhythm Respiratory: Yes: Regular, CTA Bilaterally Gastrointestinal: Yes: Soft, Hypoactive Bowel Sounds, Tenderness Musculoskeletal: Yes: WNL Extremities: Yes: WNL Neurological: Yes: Alert, Oriented Psychiatric: Yes: Alert, Oriented Labs: CBC, BMP 12/23/18 06:00 12/23/18 06:00 INR, PTT INR 1.27 (0.83-1.09) H 12/21/18 18:00 Assessment/Plan Problem List - Problems (1) Diverticulitis of large intestine with abscess without bleeding Code(s): K57.20 - DVTRCLI OF LG INT W PERFORATION AND ABSCESS W/O BLEEDING (2) Suprapubic pain Code(s): R10.2 - PELVIC AND PERINEAL PAIN (3) Dysuria Code(s): R30.0 - DYSURIA (4) Dehydration Code(s): E86.0 - DEHYDRATION (5) Hyperglycemia Code(s): R73.9 - HYPERGLYCEMIA, UNSPECIFIED plan we will continue abx rest as per surgery and the team patient improving
--- NOTE | 2018-12-23 13:53 | PN ---
Progress Note, Physician History of Present Illness: Patient with sigmoid diverticulitis with very small abscess adjacent to bladder. He is NPO/IVF on Zosyn per ID. Seen and examined in bed. Reports his pain is still better, only a little left. No BM. Ambulating in room, voiding. Had a tray of full liquids for lunch an hour ago. CT is ordered to reassess abscess in pelvis. - Current Medication List Current Medications: Active Medications Acetaminophen (Ofirmev Injection -) 1,000 mg IVPB Q6H PRN PRN Reason: Pain Level 4 - 10 Heparin Sodium (Porcine) (Heparin -) 5,000 unit SQ BID ROGER Last Admin: 12/23/18 09:30 Dose: 5,000 unit Potassium Chloride/Dextrose/Sod Cl (D5-1/2ns+20 Meq Kcl -) 20 meq in 1,000 mls @ 125 mls/hr IV ASDIR ROGER Last Admin: 12/22/18 22:18 Dose: 125 mls/hr Piperacillin Sod/Tazobactam (Sod 3.375 gm/ Dextrose) 50 mls @ 100 mls/hr IVPB Q8H-IV ROGER; Protocol Last Admin: 12/23/18 09:29 Dose: 100 mls/hr Morphine Sulfate (Morphine Sulfate) 2 mg IVPUSH Q4H PRN PRN Reason: Pain Level 7 - 10 BREAKTHROUGH - Objective Vital Signs: Vital Signs Temperature 98.9 F 12/23/18 05:32 Pulse Rate 67 12/23/18 05:32 Respiratory Rate 21 H 12/23/18 05:32 Blood Pressure 105/65 12/23/18 05:32 O2 Sat by Pulse Oximetry (%) 99 12/22/18 21:00 Constitutional: Yes: Well Nourished, No Distress, Calm Eyes: Yes: Conjunctiva Clear, EOM Intact HENT: Yes: Atraumatic, Normocephalic Gastrointestinal: Yes: Soft, Tenderness (mild suprapubic, less than yesterday but still present; not on sides). No: Distention Extremities: No: Cool, Cyanosis Integumentary: No: Jaundice, Rash Neurological: Yes: Alert, Oriented Labs: CBC, BMP 12/23/18 06:00 12/23/18 06:00 - ....Imaging Cat Scan: Pending Problem List - Problems (1) Diverticulitis of large intestine with abscess without bleeding Assessment/Plan: admitted to medicine still with tenderness, but decreasing keep NPO/IVF - would not feed while oven press tender and until CT is repeated to reassess whether abscess is big enough for aspiration/drainage or getting smaller IV antibiotics per ID, Zosyn pain meds prn - nonnarcotics first line trend labs GI/DVT prophylaxis pt will need colonoscopy 6-8 weeks after resolution of episode GI on board, discussed with Dr. Alcantara Code(s): K57.20 - DVTRCLI OF LG INT W PERFORATION AND ABSCESS W/O BLEEDING (2) Suprapubic pain Assessment/Plan: improving, oven press tender Code(s): R10.2 - PELVIC AND PERINEAL PAIN (3) Dysuria Code(s): R30.0 - DYSURIA (4) Dehydration Assessment/Plan: resolved Code(s): E86.0 - DEHYDRATION (5) Hyperglycemia Assessment/Plan: A1C elevated likely new diagnosis of DM2 defer to medicine for management, teaching Code(s): R73.9 - HYPERGLYCEMIA, UNSPECIFIED
--- NOTE | 2018-12-23 14:30 | PN.GI ---
GI Progress Note - Objective Vital Signs: Vital Signs Temperature 97.9 F 12/23/18 14:02 Pulse Rate 74 12/23/18 14:02 Respiratory Rate 21 H 12/23/18 05:32 Blood Pressure 131/84 12/23/18 14:02 O2 Sat by Pulse Oximetry (%) 99 12/22/18 21:00 Constitutional: Well Nourished, No Distress Cardiovascular: Yes: Regular Rate and Rhythm, S1, S2 Respiratory: Yes: CTA Bilaterally Gastrointestinal Inspection: Yes: WNL ...Auscultate: Yes: Normoactive Bowel Sounds ...Palpate: Yes: Soft. No: Guarding, Tenderness, Tenderness, Rebound Labs: CBC, BMP 12/23/18 06:00 12/23/18 06:00 INR, PTT INR 1.27 (0.83-1.09) H 12/21/18 18:00 Assessment/Plan Diverticulitis with small abscess from sigmoid abutting bladder, clinically improving. Continue with NPO/IVF, antibiotics, contrast CT. Will continue to follow with you.
--- NOTE | 2018-12-23 18:07 | PN ---
Progress Note, Physician History of Present Illness: doing well - Current Medication List Current Medications: Active Medications Acetaminophen (Ofirmev Injection -) 1,000 mg IVPB Q6H PRN PRN Reason: Pain Level 4 - 10 Heparin Sodium (Porcine) (Heparin -) 5,000 unit SQ BID ROGER Last Admin: 12/23/18 09:30 Dose: 5,000 unit Potassium Chloride/Dextrose/Sod Cl (D5-1/2ns+20 Meq Kcl -) 20 meq in 1,000 mls @ 125 mls/hr IV ASDIR ROGER Last Admin: 12/22/18 22:18 Dose: 125 mls/hr Piperacillin Sod/Tazobactam (Sod 3.375 gm/ Dextrose) 50 mls @ 100 mls/hr IVPB Q8H-IV ROGER; Protocol Last Admin: 12/23/18 09:29 Dose: 100 mls/hr Morphine Sulfate (Morphine Sulfate) 2 mg IVPUSH Q4H PRN PRN Reason: Pain Level 7 - 10 BREAKTHROUGH - Objective Vital Signs: Vital Signs Temperature 97.9 F 12/23/18 14:02 Pulse Rate 74 12/23/18 14:02 Respiratory Rate 21 H 12/23/18 05:32 Blood Pressure 131/84 12/23/18 14:02 O2 Sat by Pulse Oximetry (%) 99 12/22/18 21:00 Constitutional: Yes: No Distress HENT: Yes: Atraumatic Neck: Yes: Supple Cardiovascular: Yes: Regular Rate and Rhythm Respiratory: Yes: CTA Bilaterally Gastrointestinal: Yes: Normal Bowel Sounds, Tenderness (MINIMAL SUPRAPUBIC) Extremities: Yes: WNL Edema: No Peripheral Pulses WNL: Yes Neurological: Yes: Alert, Oriented Labs: CBC, BMP 12/23/18 06:00 12/23/18 06:00 INR, PTT INR 1.27 (0.83-1.09) H 12/21/18 18:00 Problem List - Problems (1) Abscess of sigmoid colon due to diverticulitis Assessment/Plan: npo ivf iv abx FOR CT SCAN TODAY Code(s): K57.20 - DVTRCLI OF LG INT W PERFORATION AND ABSCESS W/O BLEEDING (2) Suprapubic pain Code(s): R10.2 - PELVIC AND PERINEAL PAIN
[2018-12-23] MEDS: D5-1/2NS+20 MEQ KCL - 20 MEQ/1,000 ML INFUS.BAG IV SCH (21:13)
[2018-12-24] MEDS ORDERED: DEXTROSE 5%-WATER - 50 ML IVPB ONE ×3 (01:44→17:06)
[2018-12-24] MEDS ORDERED: PIPERACILLIN/TAZOBACTAM 3.375 GM VIAL IVPB ONE ×3 (01:44→17:06)
[2018-12-24] MEDS: PIPERACILLIN/TAZOB 3.375 GM 3.375 GM in DEXTROSE 5%-WATER - 50 ML IVPB SCH ×3 (01:49→17:14)
[2018-12-24] MEDS: HEPARIN NA (PORCINE) 5,000 UNITS/ML 1ML VIAL SQ SCH ×2 (10:22→21:37)
--- NOTE | 2018-12-24 11:06 | PN ---
Progress Note, Physician History of Present Illness: patient stable still with a bit pain no new issues notes noted - Current Medication List Current Medications: Active Medications Acetaminophen (Ofirmev Injection -) 1,000 mg IVPB Q6H PRN PRN Reason: Pain Level 4 - 10 Heparin Sodium (Porcine) (Heparin -) 5,000 unit SQ BID ROGER Last Admin: 12/24/18 10:22 Dose: 5,000 unit Potassium Chloride/Dextrose/Sod Cl (D5-1/2ns+20 Meq Kcl -) 20 meq in 1,000 mls @ 125 mls/hr IV ASDIR ROGER Last Admin: 12/23/18 21:13 Dose: 125 mls/hr Piperacillin Sod/Tazobactam (Sod 3.375 gm/ Dextrose) 50 mls @ 100 mls/hr IVPB Q8H-IV ROGER; Protocol Last Admin: 12/24/18 10:23 Dose: 100 mls/hr Morphine Sulfate (Morphine Sulfate) 2 mg IVPUSH Q4H PRN PRN Reason: Pain Level 7 - 10 BREAKTHROUGH - Objective Vital Signs: Vital Signs Temperature 98.7 F 12/24/18 06:29 Pulse Rate 67 12/24/18 06:29 Respiratory Rate 20 12/24/18 06:29 Blood Pressure 119/76 12/24/18 06:29 O2 Sat by Pulse Oximetry (%) 99 12/23/18 21:00 Constitutional: Yes: No Distress, Calm Cardiovascular: Yes: Regular Rate and Rhythm Respiratory: Yes: Regular, CTA Bilaterally Gastrointestinal: Yes: Normal Bowel Sounds, Soft, Tenderness (left lower quadrant) Musculoskeletal: Yes: WNL Extremities: Yes: Other Neurological: Yes: Alert, Oriented Psychiatric: Yes: Alert, Oriented Labs: CBC, BMP 12/23/18 06:00 12/23/18 06:00 INR, PTT INR 1.27 (0.83-1.09) H 12/21/18 18:00 Assessment/Plan Problem List - Problems (1) Diverticulitis of large intestine with abscess without bleeding Code(s): K57.20 - DVTRCLI OF LG INT W PERFORATION AND ABSCESS W/O BLEEDING (2) Suprapubic pain Code(s): R10.2 - PELVIC AND PERINEAL PAIN (3) Dysuria Code(s): R30.0 - DYSURIA (4) Dehydration Code(s): E86.0 - DEHYDRATION (5) Hyperglycemia Code(s): R73.9 - HYPERGLYCEMIA, UNSPECIFIED plan we will continue abx rest as per surgery and the team patient improving await for final plan will await surgical input for final plan
[2018-12-24] MEDS: D5-1/2NS+20 MEQ KCL - 20 MEQ/1,000 ML INFUS.BAG IV SCH (15:01)
--- NOTE | 2018-12-24 15:45 | PN ---
Progress Note, Physician History of Present Illness: Patient with sigmoid diverticulitis with very small abscess adjacent to bladder. He is on Zosyn per ID. Seen and examined in bed. Reports his pain is even less. Had liquid BM (from oral contrast). Ambulating, voiding, very minimal dysuria. Hungry. Had CT yesterday, which shows improvement in inflammation and decrease in size of air-fluid pocket at dome of bladder. - Current Medication List Current Medications: Active Medications Acetaminophen (Ofirmev Injection -) 1,000 mg IVPB Q6H PRN PRN Reason: Pain Level 4 - 10 Heparin Sodium (Porcine) (Heparin -) 5,000 unit SQ BID ROGER Last Admin: 12/24/18 10:22 Dose: 5,000 unit Potassium Chloride/Dextrose/Sod Cl (D5-1/2ns+20 Meq Kcl -) 20 meq in 1,000 mls @ 125 mls/hr IV ASDIR ROGER Last Admin: 12/24/18 15:01 Dose: 125 mls/hr Piperacillin Sod/Tazobactam (Sod 3.375 gm/ Dextrose) 50 mls @ 100 mls/hr IVPB Q8H-IV ROGER; Protocol Last Admin: 12/24/18 10:23 Dose: 100 mls/hr Morphine Sulfate (Morphine Sulfate) 2 mg IVPUSH Q4H PRN PRN Reason: Pain Level 7 - 10 BREAKTHROUGH - Objective Vital Signs: Vital Signs Temperature 97.3 F L 12/24/18 14:16 Pulse Rate 61 12/24/18 14:16 Respiratory Rate 20 12/24/18 06:29 Blood Pressure 111/72 12/24/18 14:16 O2 Sat by Pulse Oximetry (%) 99 12/23/18 21:00 Constitutional: Yes: Well Nourished, No Distress, Calm Eyes: Yes: Conjunctiva Clear, EOM Intact HENT: Yes: Atraumatic, Normocephalic Gastrointestinal: Yes: Soft, Tenderness (minimal suprapubic, even less than yesterday). No: Distention Extremities: No: Cool, Cyanosis Integumentary: No: Jaundice, Rash Neurological: Yes: Alert, Oriented Labs: no new labs - ....Imaging Cat Scan: Report Reviewed, Image Reviewed (images reviewed - slightly smaller area of air-fluid pocket at bladder dome under sigmoid, some improvement in inflammatory changes, oral contrast only got to about splenic flexure of colon) Problem List - Problems (1) Diverticulitis of large intestine with abscess without bleeding Assessment/Plan: admitted to medicine minimal tenderness, still decreasing CT with improvement and decrease in size of very small abscess will resume full liquids now and advance to low-fiber, diabetic diet in am IV antibiotics per ID, Zosyn pain meds prn - nonnarcotics first line GI/DVT prophylaxis presuming he tolerates food tomorrow with no increase in pain, should be able to d/c Friday on oral antibiotics to complete course (per ID) would plan for another week or two on low-fiber, diabetic diet, then can transition at home to high-fiber diabetic diet with plenty of noncaffeinated fluids pt will need colonoscopy 6-8 weeks after resolution of episode GI on board, will need to f/u with them in 4-6 weeks he also needs to establish care with a PMD (has none) shortly after discharge Code(s): K57.20 - DVTRCLI OF LG INT W PERFORATION AND ABSCESS W/O BLEEDING (2) Suprapubic pain Assessment/Plan: improved, now minimal tenderness Code(s): R10.2 - PELVIC AND PERINEAL PAIN (3) Dysuria Assessment/Plan: secondary to process/abscess adjacent to bladder now minimal Code(s): R30.0 - DYSURIA (4) Hyperglycemia Assessment/Plan: A1C elevated likely new diagnosis of DM2 defer to medicine for management, teaching consult nutrition/dietary will need to establish care with a PMD on discharge - will need referrals Code(s): R73.9 - HYPERGLYCEMIA, UNSPECIFIED
--- NOTE | 2018-12-24 16:07 | PN ---
Progress Note, Physician History of Present Illness: doing well - Current Medication List Current Medications: Active Medications Acetaminophen (Ofirmev Injection -) 1,000 mg IVPB Q6H PRN PRN Reason: Pain Level 4 - 10 Heparin Sodium (Porcine) (Heparin -) 5,000 unit SQ BID ROGER Last Admin: 12/24/18 10:22 Dose: 5,000 unit Potassium Chloride/Dextrose/Sod Cl (D5-1/2ns+20 Meq Kcl -) 20 meq in 1,000 mls @ 125 mls/hr IV ASDIR ROGER Last Admin: 12/24/18 15:01 Dose: 125 mls/hr Piperacillin Sod/Tazobactam (Sod 3.375 gm/ Dextrose) 50 mls @ 100 mls/hr IVPB Q8H-IV ROGER; Protocol Last Admin: 12/24/18 10:23 Dose: 100 mls/hr Morphine Sulfate (Morphine Sulfate) 2 mg IVPUSH Q4H PRN PRN Reason: Pain Level 7 - 10 BREAKTHROUGH - Objective Vital Signs: Vital Signs Temperature 97.3 F L 12/24/18 14:16 Pulse Rate 61 12/24/18 14:16 Respiratory Rate 20 12/24/18 06:29 Blood Pressure 111/72 12/24/18 14:16 O2 Sat by Pulse Oximetry (%) 99 12/23/18 21:00 Constitutional: Yes: No Distress HENT: Yes: Atraumatic Neck: Yes: Supple Cardiovascular: Yes: Regular Rate and Rhythm Respiratory: Yes: CTA Bilaterally Gastrointestinal: Yes: Normal Bowel Sounds, Tenderness (mild supra pubic) Extremities: Yes: WNL Edema: No Neurological: Yes: Alert, Oriented Labs: CBC, BMP 12/23/18 06:00 12/23/18 06:00 INR, PTT INR 1.27 (0.83-1.09) H 12/21/18 18:00 Problem List - Problems (1) Abscess of sigmoid colon due to diverticulitis Assessment/Plan: on full liquid diet per surgery ivf iv abx ct scan report reviewed...abcess decreasing in size Code(s): K57.20 - DVTRCLI OF LG INT W PERFORATION AND ABSCESS W/O BLEEDING (2) Suprapubic pain Code(s): R10.2 - PELVIC AND PERINEAL PAIN
--- NOTE | 2018-12-24 16:40 | PN.GI ---
GI Progress Note Subjective: No acute events CT scan from yesterday reveals improved size of perisigmoid /dameon bladder air fluid collection with signs c/w acute diverticulitis Patient states suprapubic pain improved - Objective Vital Signs: Vital Signs Temperature 97.3 F L 12/24/18 14:16 Pulse Rate 61 12/24/18 14:16 Respiratory Rate 20 12/24/18 09:00 Blood Pressure 111/72 12/24/18 14:16 O2 Sat by Pulse Oximetry (%) 99 12/23/18 21:00 Constitutional: Calm Eyes: No: Sclera Icterus Cardiovascular: Yes: Regular Rate and Rhythm Respiratory: Yes: CTA Bilaterally Gastrointestinal Inspection: No: Distention ...Auscultate: Yes: Normoactive Bowel Sounds ...Palpate: Yes: Soft, Tenderness (Mild suprapubic tenderness to palpation) ...Percussion: No: Tympanitic Edema: No (No LE edema) Neurological: Yes: Alert Labs: No repeat labs today Problem List - Problems (1) Diverticulitis of large intestine with abscess without bleeding Assessment/Plan: Clinically improved and decreased size of abscess Course of IV Abx per ID Ordered AM labs Will need follow-up colonoscopy in 6-8 weeks following this acute event Code(s): K57.20 - DVTRCLI OF LG INT W PERFORATION AND ABSCESS W/O BLEEDING
[2018-12-25] MEDS ORDERED: DEXTROSE 5%-WATER - 50 ML IVPB ONE ×3 (02:21→09:49)
[2018-12-25] MEDS ORDERED: PIPERACILLIN/TAZOBACTAM 3.375 GM VIAL IVPB ONE ×3 (02:21→09:49)
[2018-12-25] MEDS: PIPERACILLIN/TAZOB 3.375 GM 3.375 GM in DEXTROSE 5%-WATER - 50 ML IVPB SCH ×2 (02:29→09:51)
[2018-12-25 07:38] LABS: HEMATOCRIT 43.8 % (35.4-49); HEMOGLOBIN 15.2 GM/dL (11.7-16.9); MCHC 34.7 g/dl (32.0-35.9); MEAN CELL VOLUME 92.2 fl (80-96); MEAN PLT VOLUME 8.6 fl (7.5-11.1); PLATELET COUNT 261 K/MM3 (134-434); RBC 4.75 M/mm3 (4.00-5.60); RDW 13.1 % (11.9-15.9); WHITE BLOOD COUNT 6.9 K/mm3 (4.0-10.0)
[2018-12-25 07:55] LABS: ANION GAP 7 MMOL/L (8-16); BLOOD UREA NITROGEN 8 mg/dL (7-18); CALCIUM 8.9 mg/dL (8.5-10.1); CHLORIDE 103 mmol/L (98-107); CO2 26 mmol/L (21-32); CREATININE 0.7 mg/dL (0.55-1.3); GLUCOSE,RANDOM 132 mg/dL (74-106); POTASSIUM 3.9 mmol/L (3.5-5.1); SODIUM 136 mmol/L (136-145)
[2018-12-25] MEDS: D5-1/2NS+20 MEQ KCL - 20 MEQ/1,000 ML INFUS.BAG IV SCH (08:52)
[2018-12-25 09:26] VITALS: BP 106/62; PULSE 52; TEMP 98.4
[2018-12-25] MEDS: HEPARIN NA (PORCINE) 5,000 UNITS/ML 1ML VIAL SQ SCH (09:40)
--- NOTE | 2018-12-25 12:33 | DS ---
Physical Examination Vital Signs: Vital Signs Temperature 98.4 F 12/25/18 09:00 Pulse Rate 52 L 12/25/18 09:00 Respiratory Rate 18 12/25/18 09:00 Blood Pressure 106/62 12/25/18 09:00 O2 Sat by Pulse Oximetry (%) 95 12/25/18 09:00 Constitutional: Yes: No Distress HENT: Yes: Atraumatic Neck: Yes: Supple Cardiovascular: Yes: Regular Rate and Rhythm Respiratory: Yes: CTA Bilaterally Gastrointestinal: Yes: Normal Bowel Sounds, Other (no tenderness) Extremities: Yes: WNL Edema: No Neurological: Yes: Alert, Oriented Labs: CBC, BMP 12/25/18 06:45 12/25/18 06:45 Discharge Summary Reason For Visit: ABSCESS OF SIGNOID COLON DUE TO DIVERTICULITIS Current Active Problems Abscess of sigmoid colon due to diverticulitis (Acute) Dehydration (Acute) Diverticulitis of large intestine with abscess without bleeding (Acute) Dysuria (Acute) Hyperglycemia (Acute) Suprapubic pain (Acute) Condition: Stable - Instructions Diet, Activity, Other Instructions: low residue diabetic dietdiet colonoscopy in 2 weeks follow up pmd regarding diabetes come to emergency room if belly pain comes back Referrals: Tushar Rose MD [Staff Physician] - Jeremi Mcclure MD [Staff Physician] - Ani Carmona DO [Staff Physician] - Megan Mcnamara MD [Staff Physician] - Disposition: HOME - Home Medications Comprehensive Discharge Medication List: Ambulatory Orders Amoxicillin/Potassium Clav [Augmentin 875-125 Tablet] 1 each PO BID #14 tablet 12/25/18 pt tolerating diet dc home
--- NOTE | 2018-12-25 13:41 | PN ---
Progress Note, Physician History of Present Illness: Patient with sigmoid diverticulitis with very small abscess adjacent to bladder. He is on Zosyn per ID with plan to change to Augmentin on discharge. Repeat CT showed improvement in inflammation and decrease in size of air-fluid pocket at dome of bladder. Seen and examined in room with son present. Reports no pain, even with going to the bathroom. Ambulating, voiding, tolerating low- fiber diabetic diet. - Current Medication List Current Medications: Active Medications Acetaminophen (Ofirmev Injection -) 1,000 mg IVPB Q6H PRN PRN Reason: Pain Level 4 - 10 Heparin Sodium (Porcine) (Heparin -) 5,000 unit SQ BID ROGER Last Admin: 12/25/18 09:40 Dose: 5,000 unit Potassium Chloride/Dextrose/Sod Cl (D5-1/2ns+20 Meq Kcl -) 20 meq in 1,000 mls @ 125 mls/hr IV ASDIR ROGER Last Admin: 12/25/18 08:52 Dose: 125 mls/hr Piperacillin Sod/Tazobactam (Sod 3.375 gm/ Dextrose) 50 mls @ 100 mls/hr IVPB Q8H-IV ROGER; Protocol Last Admin: 12/25/18 09:51 Dose: 100 mls/hr - Objective Vital Signs: Vital Signs Temperature 98.4 F 12/25/18 09:00 Pulse Rate 52 L 12/25/18 09:00 Respiratory Rate 18 12/25/18 09:00 Blood Pressure 106/62 12/25/18 09:00 O2 Sat by Pulse Oximetry (%) 95 12/25/18 09:00 Constitutional: Yes: Well Nourished, No Distress, Calm Eyes: Yes: Conjunctiva Clear, EOM Intact HENT: Yes: Atraumatic, Normocephalic Gastrointestinal: Yes: Normal Bowel Sounds, Soft. No: Distention, Tenderness ( no suprapubic tend) Extremities: No: Cool, Cyanosis Integumentary: No: Jaundice, Rash Neurological: Yes: Alert, Oriented Labs: CBC, BMP 12/25/18 06:45 12/25/18 06:45 Problem List - Problems (1) Diverticulitis of large intestine with abscess without bleeding Assessment/Plan: admitted to medicine pain/tenderness resolved CT with improvement and decrease in size of very small abscess tolerating low-fiber, diabetic diet with no pain antibiotics per ID, Zosyn -> Augmentin on discharge encouraged to eat yogurt daily or take probiotic while on antibiotics at home would plan for another week or two on low-fiber, diabetic diet, then can transition at home to high-fiber diabetic diet with plenty of noncaffeinated fluids pt will need colonoscopy 6-8 weeks after resolution of episode GI on board, will need to f/u with them in 4-6 weeks no need for surgical followup at this time if pain recurs, or other GI symptoms, he was advised to return to ER he also needs to establish care with a PMD (has none) shortly after discharge son indicates they will call for appointment with a medical doctor referrals made Code(s): K57.20 - DVTRCLI OF LG INT W PERFORATION AND ABSCESS W/O BLEEDING (2) Hyperglycemia Assessment/Plan: A1C elevated likely new diagnosis of DM2 defer to medicine for management, teaching seen by nutrition/dietary will need to establish care with a PMD on discharge - referred to clinic Code(s): R73.9 - HYPERGLYCEMIA, UNSPECIFIED
--- NOTE | 2018-12-25 13:52 | PN ---
Progress Note, Physician - Current Medication List Current Medications: Active Medications Acetaminophen (Ofirmev Injection -) 1,000 mg IVPB Q6H PRN PRN Reason: Pain Level 4 - 10 Heparin Sodium (Porcine) (Heparin -) 5,000 unit SQ BID ORGER Last Admin: 12/25/18 09:40 Dose: 5,000 unit Potassium Chloride/Dextrose/Sod Cl (D5-1/2ns+20 Meq Kcl -) 20 meq in 1,000 mls @ 125 mls/hr IV ASDIR ROGER Last Admin: 12/25/18 08:52 Dose: 125 mls/hr Piperacillin Sod/Tazobactam (Sod 3.375 gm/ Dextrose) 50 mls @ 100 mls/hr IVPB Q8H-IV ROGER; Protocol Last Admin: 12/25/18 09:51 Dose: 100 mls/hr - Objective Vital Signs: Vital Signs Temperature 98.4 F 12/25/18 09:00 Pulse Rate 52 L 12/25/18 09:00 Respiratory Rate 18 12/25/18 09:00 Blood Pressure 106/62 12/25/18 09:00 O2 Sat by Pulse Oximetry (%) 95 12/25/18 09:00 Labs: CBC, BMP 12/25/18 06:45 12/25/18 06:45 INR, PTT INR 1.27 (0.83-1.09) H 12/21/18 18:00
== END 2018-12-25 14:30 | disposition home or self-care (01) | DRG 244 ==
LOC: JER 10:39 → JERBED 16:24 → J6S 20:21
PROVIDERS: ADMIT Internal Medicine; ATTEND Internal Medicine
DX: K57.20 Diverticulitis of large intestine with perforation and abscess without bleeding (principal); E86.0 Dehydration; R30.0 Dysuria; E11.9 Type 2 diabetes mellitus without complications
CPT/HCPCS: 36415; 74177-TC; 80048; 80053; 81003; 83036; 83735; 85025; 85027; 85610; 85730; 86140; 86850; 86900; 86901; 87086; 87491; 87591; 99283-25; J1644; J7030; Q9967